=== PATIENT | male | born 1970 | race Caucasian/White ===

== ENCOUNTER 2023-09-03 06:13 | Day surgery (SDC) | payer OTHER, SELFPAY ==
[2023-08-17 07:20] VITALS: BMI 32.9
[2023-08-17 08:49] LABS: Hematocrit 39.4 % (39.0-52.0); Hemoglobin 13.8 g/dL (13.0-18.0); Mean Corpuscular Hgb 30.6 pg (27.0-31.0); Mean Corpuscular Volume 87.4 fL (80.0-94.0); Mean Platelet Volume 9.9 fL (7.4-10.4); Platelet Count 284 10^3/uL (130-400); Red Blood Cell Count 4.51 10^6/uL (4.70-6.10); Red Cell Dist. Width 12.7 % (11.5-14.5)
[2023-09-03] VITALS (8 sets, daily range): BP systolic 119–135; BP diastolic 74–83; BMI 32.9
== END 2023-09-03 15:59 | disposition home or self-care (01) ==
LOC: SDS 06:13
PROVIDERS: ATTENDING PHYSICIAN Otolaryngology; FAMILY PHYSICIAN Physician Assistant Medical
DX: R22.1 Localized swelling, mass and lump, neck (principal); D17.0 Benign lipomatous neoplasm of skin and subcutaneous tissue of head, face and neck
CPT/HCPCS: 21556; 88304; 36415; 85027; 93005